=== PATIENT | male | born 1960 | race Asian ===

== ENCOUNTER 2024-01-30 06:15 | Inpatient (IN) | payer BC ==
[2024-01-30] VITALS (11 sets, daily range): BP systolic 138–189; BP diastolic 72–82; PULSE 62–68; RESP 16–18; TEMP 97.8–98.5; O2SAT 98–100
[~2024-01-30] VITALS: Ht 162.6 cm; Wt 54.4 kg
[2024-01-30] MEDS: SODIUM CHLORIDE 0.9% 1000ML 1,000 ML IV STA (06:42)
[2024-01-30] MEDS: DICYCLOMINE HCL 20 MG/2 ML VIAL IM ONE (06:42)
[2024-01-30] MEDS: ONDANSETRON HCL INJ 2MG/ML 2ML 2 MG/ML VIAL IV PRN (06:42)
[2024-01-30 06:51] LABS: BASOPHILS # (AUTO) 0.1 (0.0-0.1); BASOPHILS % 0.6 % (0.0-1.0); EOSINOPHILS % 0.4 % (0.0-6.0); HEMATOCRIT 36.1 % (38.2-49.6); HEMOGLOBIN 11.4 g/dL (14.0-18.0); LYMPHOCYTES # (AUTO) 1.4 (1.0-3.2); LYMPHOCYTES % 17.3 % (18.0-39.1); MEAN CORPUSCULAR HEMOGLOBIN 27.2 pg (28-32); MEAN CORPUSCULAR HGB CONC 31.6 g/dL (31-35); MEAN CORPUSCULAR VOLUME 86.2 fL (81-99); MONOCYTES # (AUTO) 0.6 (0.2-0.8); MONOCYTES % 7.2 % (4.4-11.3); NEUTROPHILS # (AUTO) 5.9 (2.1-6.9); NEUTROPHILS % 74.1 % (38.7-80.0); PLATELET COUNT 268 x10e3/uL (140-360); RED BLOOD COUNT 4.19 x10e6/uL (4.3-5.7); RED CELL DISTRIBUTION WIDTH 13.6 % (11.7-14.4); WHITE BLOOD COUNT 7.94 x10e3/uL (4.8-10.8)
[2024-01-30 07:20] LABS: ALBUMIN 2.8 g/dL (3.5-5.0); ALBUMIN/GLOBULIN RATIO 0.8 (0.8-2.0); ANION GAP 14.6 mmol/L (8-16); BILIRUBIN,TOTAL 0.4 mg/dL (0.2-1.2); CALCIUM 8.3 mg/dL (8.4-10.2); CREATININE, SERUM 3.01 mg/dL (0.72-1.25); POTASSIUM 3.6 mmol/L (3.5-5.1); TOTAL PROTEIN 6.3 g/dL (6.5-8.1)
[2024-01-30 08:26] LABS: CLARITY,URINE SL CLOUDY (CLEAR); COLOR,URINE YELLOW (YELLOW)
[2024-01-30 08:27] LABS: BILIRUBIN,URINE NEGATIVE (NEGATIVE); GLUCOSE, URINE 500 (NEGATIVE); KETONES,URINE NEGATIVE (NEGATIVE); LEUKOCYTE ESTERASE ,URINE NEGATIVE (NEGATIVE); NITRITE,URINE NEGATIVE (NEGATIVE); PH,URINE 6 (5 - 7); PROTEIN,URINE DIPSTICK >=300 (NEGATIVE); URINE UROBILINOGEN 0.2 mg/dL (0.2 - 1)
[2024-01-30 08:28] LABS: BACTERIA,URINE MODERATE /HPF; EPITHELIAL CELLS,URINE FEW /LPF
[2024-01-30] MEDS: CLONIDINE HCL 0.1 MG TAB PO ONE (08:44)
[2024-01-30] MEDS ORDERED: ONDANSETRON HCL INJ 2MG/ML 2ML 2 MG/ML VIAL IV PRN (08:45)
[2024-01-30] MEDS ORDERED: LANTUS 3ML100 UNITS/ SQ (12:28)
[2024-01-30] MEDS ORDERED: DEXTROSE 50% SYRINGE 50 ML IV PRN (12:30)
[2024-01-30] MEDS: INSULIN LISPRO 100 UNIT/1 ML 3ML VIAL SQ SCH ×2 (13:12→16:38)
[2024-01-30] MEDS: SODIUM CHLORIDE 0.9% 1000ML 1,000 ML IV SCH (13:14)
[2024-01-30] MEDS: AMLODIPINE BESYLATE 10 MG TAB PO SCH (13:14)
[2024-01-30 15:11] LABS: ANION GAP 13.7 mmol/L (8-16); CALCIUM 7.8 mg/dL (8.4-10.2); CREATININE, SERUM 2.69 mg/dL (0.72-1.25); POTASSIUM 3.7 mmol/L (3.5-5.1)
[2024-01-31] VITALS (9 sets, daily range): BP systolic 156–178; BP diastolic 72–94; PULSE 61–71; RESP 16–18; TEMP 97.9–98.3; O2SAT 98–100
[2024-01-31 05:27] LABS: BASOPHILS % 0.4 % (0.0-1.0); EOSINOPHILS % 0.4 % (0.0-6.0); HEMATOCRIT 31.3 % (38.2-49.6); HEMOGLOBIN 9.8 g/dL (14.0-18.0); LYMPHOCYTES # (AUTO) 1.3 (1.0-3.2); LYMPHOCYTES % 16.7 % (18.0-39.1); MEAN CORPUSCULAR HEMOGLOBIN 27.4 pg (28-32); MEAN CORPUSCULAR HGB CONC 31.3 g/dL (31-35); MEAN CORPUSCULAR VOLUME 87.4 fL (81-99); MONOCYTES # (AUTO) 0.6 (0.2-0.8); MONOCYTES % 7.9 % (4.4-11.3); NEUTROPHILS # (AUTO) 5.7 (2.1-6.9); NEUTROPHILS % 74.1 % (38.7-80.0); PLATELET COUNT 209 x10e3/uL (140-360); RED BLOOD COUNT 3.58 x10e6/uL (4.3-5.7); RED CELL DISTRIBUTION WIDTH 13.4 % (11.7-14.4); WHITE BLOOD COUNT 7.62 x10e3/uL (4.8-10.8)
[2024-01-31 05:57] LABS: ANION GAP 10.5 mmol/L (8-16); CALCIUM 7.5 mg/dL (8.4-10.2); CREATININE, SERUM 2.61 mg/dL (0.72-1.25); POTASSIUM 3.5 mmol/L (3.5-5.1)
[2024-01-31] MEDS: SODIUM CHLORIDE 0.9% 1000ML 1,000 ML IV SCH (06:11)
[2024-01-31] MEDS: ACETAMINOPHEN 325 MG TAB PO PRN (13:32)
[2024-01-31] MEDS: SODIUM CHLORIDE 0.9% IV SCH (16:26)
[2024-01-31] MEDS: SODIUM BICARBONATE 8.4% IV SCH (16:26)
[2024-02-01] VITALS (8 sets, daily range): BP systolic 125–178; BP diastolic 62–94; PULSE 57–98; RESP 18–19; TEMP 97.9–98.5; O2SAT 99–100
[2024-02-01 06:13] LABS: ANION GAP 10.6 mmol/L (8-16); CALCIUM 8.1 mg/dL (8.4-10.2); CREATININE, SERUM 2.56 mg/dL (0.72-1.25); POTASSIUM 3.6 mmol/L (3.5-5.1)
[2024-02-01] MEDS: SODIUM CHLORIDE 0.9% 1000ML 1,000 ML IV SCH (14:18)
[2024-02-01] MEDS: ONDANSETRON HCL 4 MG ORAL DISINTEGRATING TAB PO PRN (16:10)
[2024-02-02] VITALS (8 sets, daily range): BP systolic 132–182; BP diastolic 72–89; PULSE 54–79; RESP 16–20; TEMP 97.9–98.7; O2SAT 99–100
[2024-02-02] MEDS: CLONIDINE HCL 0.1 MG TAB PO PRN (00:15)
[2024-02-02 06:56] LABS: BASOPHILS % 0.3 % (0.0-1.0); EOSINOPHILS # (AUTO) 0.1 (0.0-0.4); EOSINOPHILS % 0.9 % (0.0-6.0); HEMOGLOBIN 9.6 g/dL (14.0-18.0); LYMPHOCYTES # (AUTO) 1.3 (1.0-3.2); LYMPHOCYTES % 18.8 % (18.0-39.1); MEAN CORPUSCULAR HEMOGLOBIN 26.7 pg (28-32); MEAN CORPUSCULAR VOLUME 86.4 fL (81-99); MONOCYTES # (AUTO) 0.6 (0.2-0.8); MONOCYTES % 8.3 % (4.4-11.3); NEUTROPHILS # (AUTO) 4.7 (2.1-6.9); NEUTROPHILS % 71.2 % (38.7-80.0); PLATELET COUNT 187 x10e3/uL (140-360); RED BLOOD COUNT 3.59 x10e6/uL (4.3-5.7); RED CELL DISTRIBUTION WIDTH 12.8 % (11.7-14.4); WHITE BLOOD COUNT 6.64 x10e3/uL (4.8-10.8)
[2024-02-02 07:28] LABS: ALBUMIN 2.3 g/dL (3.5-5.0); ALBUMIN/GLOBULIN RATIO 0.9 (0.8-2.0); ANION GAP 13.5 mmol/L (8-16); BILIRUBIN,TOTAL 0.5 mg/dL (0.2-1.2); CALCIUM 7.1 mg/dL (8.4-10.2); CREATININE, SERUM 2.43 mg/dL (0.72-1.25); POTASSIUM 3.5 mmol/L (3.5-5.1); TOTAL PROTEIN 4.9 g/dL (6.5-8.1)
[2024-02-02 07:42] LABS: CHOL/HDL RATIO 7.1 (3.9-4.7)
[2024-02-02] MEDS: ATORVASTATIN 40 MG TAB PO SCH (21:57)
[2024-02-03] VITALS (8 sets, daily range): BP systolic 134–193; BP diastolic 76–97; PULSE 62–82; RESP 18; TEMP 97.4–98.3; O2SAT 99–100
[2024-02-03 06:50] LABS: ANION GAP 11.3 mmol/L (8-16); CALCIUM 6.8 mg/dL (8.4-10.2); CREATININE, SERUM 2.3 mg/dL (0.72-1.25); POTASSIUM 3.3 mmol/L (3.5-5.1)
[2024-02-03 07:05] LABS: ALBUMIN 2.1 g/dL (3.5-5.0); ALBUMIN/GLOBULIN RATIO 0.8 (0.8-2.0); BILIRUBIN,TOTAL 0.4 mg/dL (0.2-1.2); TOTAL PROTEIN 4.6 g/dL (6.5-8.1)
[2024-02-03] MEDS: ASPIRIN 81 MG ENTERIC COATED PO SCH (11:07)
[2024-02-03] MEDS ORDERED: POTASSIUM BICARBONATE/CIT AC 20 MEQ TABLET.EFF PO ONE (11:30)
[2024-02-03] MEDS: POTASSIUM CHLORIDE 10MEQ EA PO ONE (11:59)
[2024-02-03] MEDS: CALCIUM CHLORIDE 13.6 MEQ in SODIUM CHLORIDE 0.9% 100 ML IV ONE (11:59)
[2024-02-03 13:41] LABS: FOLATE 9.6 ng/mL (7.0-15.4)
[2024-02-03] MEDS: HYDRALAZINE HCL 25 MG TAB PO SCH (16:12)
[2024-02-03] MEDS: MECLIZINE HCL 12.5 MG TAB PO PRN (16:14)
[2024-02-04 03:18] VITALS: BP 177/89; PULSE 66; RESP 18; TEMP 98.3; O2SAT 100
[2024-02-04 05:54] LABS: ANION GAP 12.7 mmol/L (8-16); CALCIUM 7.5 mg/dL (8.4-10.2); CREATININE, SERUM 2.27 mg/dL (0.72-1.25); POTASSIUM 3.7 mmol/L (3.5-5.1)
[2024-02-04 10:04] VITALS: BP 190/92; PULSE 76; RESP 20; TEMP 98.2; O2SAT 100
[2024-02-04 12:46] VITALS: BP 179/89; PULSE 86; RESP 20; TEMP 98.2; O2SAT 100
[2024-02-04] MEDS: HYDRALAZINE HCL 25 MG TAB PO SCH (16:10)
[2024-02-04 16:39] VITALS: BP 176/99; PULSE 87; RESP 20; TEMP 97.4; O2SAT 100
[2024-02-04] MEDS ORDERED: NORVASC10 MG PO (18:58)
[2024-02-04] MEDS ORDERED: MECLIZINE HCL12.5 MG PO (18:58)
[2024-02-04] MEDS ORDERED: HYDRALAZINE HCL25 MG PO (18:58)
[2024-02-04] MEDS ORDERED: ASPIRIN EC81 MG PO (18:58)
[2024-02-04] MEDS ORDERED: CLONIDINE HCL0.1 MG PO (18:58)
[2024-02-04] MEDS ORDERED: ATORVASTATIN CA40 MG PO (18:58)
[2024-02-04 19:22] VITALS: BP 163/75; PULSE 85; RESP 18; TEMP 98.1; O2SAT 100
== END 2024-02-04 21:02 | DRG 65 ==
LOC: ER 06:20 → ERHOLD 08:36 → MED/SURG 12:17 → OBSVTOIN 01-31 14:01
PROVIDERS: ADMIT Internal Medicine; ATTEND Internal Medicine
DX: I63.9 Cerebral infarction, unspecified (principal); N17.9 Acute kidney failure, unspecified; A05.9 Bacterial foodborne intoxication, unspecified; E86.0 Dehydration; R53.1 Weakness; R42 Dizziness and giddiness; R26.9 Unspecified abnormalities of gait and mobility; R53.81 Other malaise; D64.9 Anemia, unspecified; G93.89 Other specified disorders of brain; F17.200 Nicotine dependence, unspecified, uncomplicated; Z71.6 Tobacco abuse counseling; E78.00 Pure hypercholesterolemia, unspecified; E11.22 Type 2 diabetes mellitus with diabetic chronic kidney disease; I12.9 Hypertensive chronic kidney disease with stage 1 through stage 4 chronic kidney disease, or unspecified chronic kidney disease; N18.30 Chronic kidney disease, stage 3 unspecified; Z79.4 Long term (current) use of insulin; I95.1 Orthostatic hypotension; S01.81XA Laceration without foreign body of other part of head, initial encounter; W01.198A Fall on same level from slipping, tripping and stumbling with subsequent striking against other object, initial encounter; Y92.230 Patient room in hospital as the place of occurrence of the external cause; E87.6 Hypokalemia; E83.51 Hypocalcemia; I07.1 Rheumatic tricuspid insufficiency; Z11.52 Encounter for screening for COVID-19; Z91.148 Patient's other noncompliance with medication regimen for other reason; Z79.899 Other long term (current) drug therapy; Z79.82 Long term (current) use of aspirin
CPT/HCPCS: 36415; 70450; 70551; 76770; 78452; 80048; 80053; 80061; 81001; 82607; 82746; 82948; 83690; 84443; 85025; 93306; 93880; 94799; 99284; A9502; G0378; J2405; J2470; J7030; J7050; Q0162; U0002